=== PATIENT | male | born 1940 | race Caucasian/White ===

== ENCOUNTER 2016-04-05 15:08 | Inpatient (IN) | payer OTHER ==
--- NOTE | 2016-04-05 15:28 | CPEKG ---
Heart Rate: 86 RR Interval: 698 P-R Interval: 144 QRSD Interval: 150 QT Interval: 384 QTC Interval: 460 P [place]: 48 QRS [place]: -77 T Wave [place]: 33 EKG Severity - ABNORMAL ECG - EKG Impression: SINUS RHYTHM EKG Impression: RBBB AND LAFB Electronically Signed By: Emma Sanchez 05-Apr-2016 18:11:24
[2016-04-05] MEDS ORDERED: HYDROmorphONE/DILAUDID 1 MG/ML SYR IVP ONE ×2 (15:38→17:46)
--- NOTE | 2016-04-05 16:33 | EDPHY ---
H & P Stated Complaint: Rib pain Time Seen by Provider: 04/05/16 15:18 HPI/ROS: CHIEF COMPLAINT: Cough, rib pain HISTORY OF PRESENT ILLNESS: 75-year-old male presents emergency department reporting that he has had a cough for 2 weeks. Cough has been keeping him up at night. Over the last 3 days it has been productive of blood-tinged sputum. Patient also has had some nasal congestion. He saw his primary care physician yesterday without any significant diagnosis. Patient shoveled snow this morning and afterwards developed severe left chest discomfort. He indicates a well localized area of pain which is palpable and pleuritic. Denies any lightheadedness or dizziness. Denies any anterior chest pain. Denies nausea or vomiting or diarrhea. Denies any fever. REVIEW OF SYSTEMS: Aside from elements discussed in the HPI, a comprehensive 10-point review of systems was reviewed and is negative. PAST MEDICAL HISTORY: Coronary artery disease with 6 stents, pacemaker. SOCIAL HISTORY: Patient is . He has [employer]. VITAL SIGNS Reviewed by me. GENERAL: Elderly male, pleasant, reports significant pain when taking a deep breath. HEENT: Atraumatic. Eyes: No icterus, no injection. Mouth: moist mucous membranes. Posterior erythema, no tonsillar enlargement or exudates. Neck: supple with no adenopathy. LUNGS: Diminished breath sounds at the left base. Significant discomfort when taking a deep breath. CARDIAC: Regular rate and rhythm, no rubs, murmurs or gallops. ABDOMEN: Soft, nontender, nondistended, bowel sounds normal. BACK: No CVA tenderness. EXTREMITIES: No trauma. No edema. Range of motion is normal throughout. NEURO: Alert and oriented, grossly nonfocal. SKIN: Warm and dry, no rash. PSYCHIATRIC: Normal mentation, no agitation. - Personal History Current Tetanus/Diphtheria Vaccine: Yes Current Tetanus Diphtheria and Acellular Pertussis (TDAP): Yes Tetanus Vaccine Date: <10 YRS - Medical/Surgical History Hx Asthma: No Hx Chronic Respiratory Disease: No Hx Diabetes: No Hx Cardiac Disease: Yes Hx Renal Disease: No Hx Cirrhosis: No Hx Alcoholism: No Hx HIV/AIDS: No Hx Splenectomy or Spleen Trauma: No Other PMH: pacemaker, 6 stents - Social History Smoking Status: Never smoked Constitutional: Initial Vital Signs Temperature (C) 37.1 C 04/05/16 15:19 Heart Rate 90 04/05/16 15:19 Respiratory Rate 18 04/05/16 15:19 Blood Pressure 159/78 H 04/05/16 15:19 O2 Sat (%) 92 04/05/16 15:19 O2 Delivery Mode Room Air Allergies/Adverse Reactions: No Known Allergies Allergy (Verified 04/05/16 15:18) Home Medications: Medication Instructions Recorded Acetamn/Diphenhydramine 500/25 2 each PO HS 04/05/16 [Tylenol PM (*)] Aspirin [Aspirin 325 mg (*)] 325 mg PO DAILY 04/05/16 Clopidogrel Bisulfate [Plavix (*)] 75 mg PO DAILY 04/05/16 Lactulose 20 gm PO DAILY@18 04/05/16 Lisinopril [Zestril 5 mg (*)] 5 mg PO DAILY 04/05/16 [place]-3 Fatty Acids [Fish Oil 1000 1,000 mg PO DAILY 04/05/16 mg (*)] Omeprazole 20 mg PO DAILY 04/05/16 Polyethylene Glycol 3350 [Miralax 17 gm PO DAILY@18 04/05/16 17 gm (*)] Simvastatin 40 mg PO DAILY 04/05/16 oxyCODONE IR [Oxycodone Ir (*)] 5 mg PO TID PRN 04/05/16 Medical Decision Making - Diagnostics EKG Interpretation: 12-LEAD EKG: Please see the full report in [facility]. My interpretation: Sinus rhythm, right bundle branch block. Imaging: X-ray: Chest x-ray was obtained. I viewed the images myself on the PACS system. My interpretation of the images is: Left basilar consolidation, probable effusion, infiltrate. The radiologist interpretation is pending at this time. I discussed the x-ray findings with the patient. Results: CT scan of the chest was obtained. I viewed the images independently on the PACS system. I discussed the results of the study with the radiologist. Impression: No pulmonary emboli, left pleural effusion, left lower lobe infiltrate, posterior lingular infiltrate. Please see the full radiology report. ED Course/Re-evaluation: 75-year-old male presents to the emergency department with left-sided chest discomfort. Patient believes this is related to coughing. Does have a pleuritic component to his pain. He has been sick for the previous 2 weeks with sputum production and developed bloody sputum 3 days ago. Chest x-ray here demonstrates significant changes at the left base. Patient's D-dimer is elevated. Patient underwent a CT scan of his chest for PE. No pulmonary emboli. CT scan demonstrates pleural effusion with left lower lobe infiltrate and left posterior lingular infiltrate. Patient has not had a fever but has white count on 13,000. He does report he has had a cough productive of bloody sputum. Lactic acid is normal. No signs of severe sepsis. O2 sat on room air on arrival as documented at 92%. Patient's course was discussed with [facility]. Patient has [employer] Medicare and would prefer to be admitted to [facility]. [facility] is in agreement with the plan and admission to [facility]. Patient's course was discussed with Dr. Alvino Ibarra. He received a dose of Levaquin and was admitted to [facility]. Differential Diagnosis: After history and physical examination, the differential for chest pain was considered, including but not limited to, myocardial ischemia, acute coronary syndrome, pulmonary embolus, chest wall pain, pleural inflammation and pulmonary infectious causes. Consult/Admit Bed Type: Dr. Alvino Ibarra, [facility] surg - Data Points Laboratory Results: Laboratory Results 04/05/16 15:18 04/05/16 15:18 04/05/16 04/05/16 18:20 15:18 WBC 13.44 H 10^3/uL (3.80-9.50) RBC 5.14 10^6/uL (4.40-6.38) Hgb 15.8 g/dL (13.7-17.5) Hct 46.6 % (40.0-51.0) MCV 90.7 fL (81.5-99.8) MCH 30.7 pg (27.9-34.1) MCHC 33.9 g/dL (32.4-36.7) RDW 12.7 % (11.5-15.2) Plt Count 570 H 10^3/uL (150-400) MPV 8.6 L fL (8.7-11.7) Neut % (Auto) 78.3 H % (39.3-74.2) Lymph % (Auto) 13.8 L % (15.0-45.0) [place] % (Auto) 6.2 % (4.5-13.0) Eos % (Auto) 0.9 % (0.6-7.6) Baso % (Auto) 0.3 % (0.3-1.7) Nucleat RBC Rel Count 0.0 % (0.0-0.2) Absolute Neuts (auto) 10.52 H 10^3/uL (1.70-6.50) Absolute Lymphs (auto) 1.86 10^3/uL (1.00-3.00) Absolute Monos (auto) 0.83 H 10^3/uL (0.30-0.80) Absolute Eos (auto) 0.12 10^3/uL (0.03-0.40) Absolute Basos (auto) 0.04 10^3/uL (0.02-0.10) Absolute Nucleated RBC 0.00 10^3/uL (0-0.01) Immature Gran % 0.5 % (0.0-1.1) Immature Gran # 0.07 10^3/uL (0.00-0.10) PT 14.3 SEC (12.0-15.0) INR 1.12 (0.83-1.16) APTT 31.4 SEC (23.0-38.0) D-Dimer 1.60 H ug/mLFEU (0.00-0.50) VBG Lactic Acid 1.5 mmol/L (0.7-2.1) Sodium 143 mEq/L (134-144) Potassium 4.2 mEq/L (3.5-5.2) Chloride 102 mEq/L (97-110) Carbon Dioxide 25 mEq/l (22-31) Anion Gap 16 mEq/L (8-16) BUN 15 mg/dL (7-23) Creatinine 0.9 mg/dL (0.7-1.3) Estimated GFR > 60 Glucose 149 H mg/dL (70-100) Calcium 9.3 mg/dL (8.5-10.4) Total Bilirubin 0.7 mg/dL (0.1-1.4) Troponin I 0.013 ng/mL (0-0.034) Medications Given: Discontinued Medications Hydromorphone HCl (Dilaudid) 1 mg IVP EDNOW ONE Stop: 04/05/16 15:39 Last Admin: 04/05/16 15:52 Dose: 1 mg Hydromorphone HCl (Dilaudid) 1 mg IVP EDNOW ONE Stop: 04/05/16 17:47 Last Admin: 04/05/16 17:52 Dose: 1 mg Departure - Departure Disposition: [facility] Inpatient Acute Clinical Impression: Pleural effusion, Pleurodynia Pneumonia Qualifiers: Pneumonia type: due to unspecified organism Laterality: left Lung location: lower lobe of lung Qualifier Code: (J18.1) Lobar pneumonia, unspecified organism Condition: Fair
[2016-04-05 16:40] LABS: % IMMATURE GRANULYOCYTES 0.5 % (0.0-1.1); ABSOLUTE IMMATURE GRANULOCYTES 0.07 10^3/uL (0.00-0.10); ADD DIFF? NO; ADD MORPH? NO; ADD SCAN? NO; ATYPICAL LYMPHOCYTE FLAG 0 (0-99); FRAGMENT RBC FLAG 0 (0-99); HEMATOCRIT 46.6 % (40.0-51.0); HEMOGLOBIN 15.8 g/dL (13.7-17.5); LEFT SHIFT FLG 0 (0-99); LIPEMIA HEMOLYSIS FLAG 90 (0-99); MEAN CELL HEMOGLOBIN 30.7 pg (27.9-34.1); MEAN CELL HEMOGLOBIN CONCENTR. 33.9 g/dL (32.4-36.7); MEAN CELL VOLUME 90.7 fL (81.5-99.8); MEAN PLATELET VOLUME 8.6 fL (8.7-11.7); PLATELET CLUMPS FLAG 30 (0-99); PLATELET COUNT 570 10^3/uL (150-400); RED BLOOD CELL COUNT 5.14 10^6/uL (4.40-6.38); RED CELL DISTRIBUTION WIDTH 12.7 % (11.5-15.2)
[2016-04-05 16:45] LABS: ANION GAP 16 mEq/L (8-16); CALCIUM 9.3 mg/dL (8.5-10.4); CARBON DIOXIDE 25 mEq/l (22-31); CHLORIDE 102 mEq/L (97-110); CREATININE 0.9 mg/dL (0.7-1.3); GLOMERULAR FILTRATION RATE > 60; GLUCOSE 149 mg/dL (70-100); POTASSIUM 4.2 mEq/L (3.5-5.2); SODIUM 143 mEq/L (134-144)
--- NOTE | 2016-04-05 16:52 | DX ---
PA Upright and Lateral Views of the Chest April 05, 2016, at 3:34 p.m. Clinical History: 75-year-old male with lower lateral left-sided chest pain for three days which has been worsening. Comparison Study: Chest, dated July 09, 2006. Findings: Oxygen tubing and telemetry monitoring lead lines are present. There is a dual-lead left curran bclavian transvenous pacemaker with the proximal lead in the right atrium and the distal lead in the right ventricle. A left-sided coronary artery stent is present. There has been development of left ba silar pleuroparenchymal consolidation consistent with atelectasis, infiltrate and/or pleural effusion . There is an air-fluid in the stomach. There is pleural calcification seen over the lateral right mi d-chest. There is mural calcification of the aortic knob. The osseous structures are age appropriate. Impression: Left lower lobe pleuroparenchymal consolidation. Clinical correlation and follow up to as sure resolution are recommended.
[2016-04-05 16:57] LABS: TROPONIN I 0.013 ng/mL (0-0.034)
[2016-04-05] MEDS ORDERED: IOPAMIDOL (ISOVUE 370) 100 ML BTL IV ONE (17:18)
[2016-04-05 17:34] LABS: APTT 31.4 SEC (23.0-38.0); INR 1.12 (0.83-1.16); PROTIME(PATIENT) 14.3 SEC (12.0-15.0)
[2016-04-05 17:48] LABS: BILIRUBIN,TOTAL 0.7 mg/dL (0.1-1.4)
--- NOTE | 2016-04-05 18:47 | CT ---
Contrast-Enhanced CT Scan of the Chest (CT Pulmonary Artery Angiography) Clinical History: 75-year-old male with left lower lobe pleuroparenchymal consolidation and left-side d chest pain. Rule out PE. The patient has a mild leukocytosis. Technique: A timing bolus was used. The patient received 90 mL of IV Isovue-370, without complicati on, and a multidetector helical CT scan was obtained from the base of the neck inferiorly through the upper abdomen, with images reformatted at 1.50 and 4/3 mm increments, and reviewed at a variety of w indow and level settings. Multiplanar reconstructions are reviewed on the workstation. The DFOV is 33.1 cm. A dose reduction protocol was used. Comparison Study: Chest radiography from earlier this afternoon. Findings: CT Angiography: The main pulmonary artery, the main right and the main left pulmonary arteries, and the 1st and 2nd pulmonary artery segments are contrast-opacified, with no filling defect to suggest a cute or chronic thromboemboli. There is some breathing artifact and limitation in evaluation of the more peripheral subsegmental branches. At the level of the left lower lobe pleuroparenchymal consoli dation, the pulmonary arteries are contrast-opacified. There is borderline-aneurysmal dilatation of the ascending thoracic aorta, measuring 3.9 x 4.1 cm at the crossing right pulmonary artery. The vineet cending thoracic aorta at this same level measures 2.5 x 2.4 cm. Coronary artery atherosclerotic jemma cifications are observed, and there is an LAD coronary artery stent present. The great vessels off t he aortic arch are notable for anatomic variation in that the left vertebral artery arises directly f rom the aortic arch before the left innominate ostium. There is no evidence of thoracic or upper abd ominal aortic dissection. Atherosclerotic calcifications are observed. The heart size is normal. T here is no pericardial effusion. There is a dual-lead left subclavian transvenous pacemaker, with th e proximal lead in the right atrium and the distal lead in the anterior right ventricle. Contrast-Enhanced CT Scan of the Chest: There is beam-hardening artifact over the upper left anterio r chest wall secondary to the pacemaker battery pack. The thyroid gland is normal. There is no axil hilda adenopathy. There is a 1.7 x 1.4 cm subcarinal lymph node and a 1.5 x 1.5 cm left hilar lymph n ode. These may be reactive, however, follow up is suggested. There is a left pleural effusion of mi af-ym-[id number] degree, with some compressive atelectasis and/or infiltrate. These findings are most pronounced in the left lower lobe, although there is some involvement of the inferolateral lingula. There is also some minimal atelectasis at the posterior right lung base, with no significant pleural fluid on the right side. Calcified pleural plaques are consistent with prior asbestos-related pleura l disease. There are degenerative features of the thoracic spine, with no compression deformity. Th e visualized portions of the upper abdomen are unremarkable. Impression: 1. There is no CT evidence of pulmonary artery thromboemboli. 2. Qofjc-wb-vnpqkotk left pleural effusion, with left basilar atelectasis and/or infiltrate. 3. Sequela of prior asbestos-related pleural disease, with some calcified pleural plaquing. 4. LAD coronary artery stenting, with atherosclerotic features. 5. Borderline-aneurysmal dilatation of the ascending thoracic aorta, with no evidence of dissection. I discussed the above findings with Dr. Emma Sanchez at 6:25 p.m. on April 05, 2016. E:moose
[2016-04-05] MEDS ORDERED: ZOLPIDEM TARTRATE 5 MG TAB PO PRN (20:29)
[2016-04-05] MEDS ORDERED: ONDANSETRON 4 MG/2 ML VIAL IVP PRN (20:29)
[2016-04-05] MEDS ORDERED: PROMETHAZINE HCL 25 MG/ML VIAL IVP PRN (20:29)
--- NOTE | 2016-04-05 20:37 | PDGENHP ---
History and Physical History and Physical: HISTORY AND PHYSICAL ADMISSION NOTE CC: Pleuritic chest pain and fevers HISTORY: This patient has had a cough for about 3 weeks. Over the last few days he has developed steadily worsening pleuritic chest pain along with some hemoptysis. He is not really short of breath per se. There is no angina-like symptoms, no pain or swelling in the legs. He has no cold or flu type upper respiratory symptoms. He has never had an illness like this before. He says he has been waking recently at night with his not close completely soaked with sweat. He has not had rigors. He denies nausea vomiting headache myalgias or arthralgias. He was seen at an outside hospital yesterday where he had chest x- ray done. He was not started apparently on any new therapy. He comes in today for further evaluation here. ROS: Chronic arthritic pains otherwise 10 system comprehensive review unrevealing PAST MEDICAL HISTORY: Hypertension Coronary artery disease status post stents Pacemaker Osteoarthritis FAMILY MEDICAL HISTORY: Reviewed by me, no concerning or relevant significant medical history SOCIAL HISTORY: , lives with his at home No tobacco or street drugs or alcohol Dr. Burr is his primary physician at [place] MEDICATIONS: His medication list has been reconciled by the clinical pharmacist and entered in the chart. I reviewed the list of medicines and ordered appropriate medications. PHYSICAL EXAMINATION: Vital Signs: Stable without fever here so far Child Care Assistant: Sinus rhythm Examination: General: alert, oriented, good mentation, relaxed Skin: warm, dry, good color, no rash HEENT: normal Neck: no mass or jvd Resps: His Respiratory depth is significantly limited by sharp pleuritic pain Lungs: Auscultation is limited by his shallow respirations, no definite abnormalities her Heart: regular, no murmur Abdomen: soft, nondistended, nontender, +BS, no mass Upper Extremities: normal Lower Extremities: no edema, warm No Bleeding or bruising Neurologic: normal speech/language, normal learning disabilities specialist, no focal weakness IV site: looks normal LABORATORY DATA: Elevated white blood cell count, elevated D-dimer, elevated platelets EKG: my personal interpretation of the tracing, sinus rhythm with right bundle branch block left anterior fascicular block, nothing that appears ischemic RADIOLOGY STUDIES: CT scan and chest x-ray both done in the ER, I reviewed all the images personally, my interpretation: There is elevation of the left hemidiaphragm, moderate left pleural effusion, atelectasis and possible left lower lobe infiltrate. I do not see a mass. The radiologist comments on some pleural plaques suggestive of probable asbestosis ASSESSMENT: DIAGNOSES: # SUSPECT COMMUNITY-ACQUIRED PNEUMONIA THE UNDERLYING CAUSE OF THIS ACUTE ILLNESS HOWEVER OTHER CAUSES ARE POSSIBLE, PULMONARY EMBOLISM IS RULED OUT # LEFT-SIDED PLEURAL EFFUSION, SUSPECT PARAPNEUMONIC, HOWEVER EMPYEMA OR HEMORRHAGE ARE POSSIBLE # HEMOPTYSIS, MOST LIKELY RELATED TO PNEUMONIA, HOWEVER WITH DIFFERENTIAL DIAGNOSIS USUAL. NO MASS SEEN ON CT SCAN. # HISTORY OF CORONARY DISEASE AND STENTS, CLINICALLY STABLE NOW PLANS: -he is started on empiric antibiotics in the ER after cultures were obtained and I will continue this with Levaquin -Plan on thoracentesis in the morning; orders for routine labs for empyema, cultures, cytology -DVT prophylaxis will start after the thoracentesis -Continue anti-platelet therapy for now I have reviewed the patient's case in detail with Dr. Sanchez
[2016-04-05] MEDS: BENZONATATE 100 MG CAP PO PRN (21:24)
[2016-04-05] MEDS: ACETAMN/DIPHENHYDRAMINE 500/25MG TAB PO SCH (21:24)
[2016-04-05 23:53] LABS: LACTATE DEHYDROGENASE 699 IU/L (313-618)
[2016-04-06] MEDS: BENZONATATE 100 MG CAP PO PRN ×3 (02:31→20:16)
[2016-04-06 02:51] LABS: COLOR YELLOW; LEUKOCYTE ESTERASE,URINE NEGATIVE (NEGATIVE); NITRITE,URINE NEGATIVE (NEGATIVE)
[2016-04-06 03:00] LABS: MUCUS 1+ /lpf (NONE-1+)
[2016-04-06 06:03] LABS: % IMMATURE GRANULYOCYTES 0.5 % (0.0-1.1); ABSOLUTE IMMATURE GRANULOCYTES 0.08 10^3/uL (0.00-0.10); ADD DIFF? NO; ADD MORPH? NO; ADD SCAN? NO; ATYPICAL LYMPHOCYTE FLAG 0 (0-99); FRAGMENT RBC FLAG 0 (0-99); HEMATOCRIT 40.3 % (40.0-51.0); HEMOGLOBIN 13.6 g/dL (13.7-17.5); LEFT SHIFT FLG 10 (0-99); LIPEMIA HEMOLYSIS FLAG 80 (0-99); MEAN CELL HEMOGLOBIN 30.8 pg (27.9-34.1); MEAN CELL HEMOGLOBIN CONCENTR. 33.7 g/dL (32.4-36.7); MEAN CELL VOLUME 91.2 fL (81.5-99.8); MEAN PLATELET VOLUME 8.6 fL (8.7-11.7); PLATELET CLUMPS FLAG 0 (0-99); PLATELET COUNT 429 10^3/uL (150-400); RED BLOOD CELL COUNT 4.42 10^6/uL (4.40-6.38); RED CELL DISTRIBUTION WIDTH 12.6 % (11.5-15.2)
[2016-04-06 06:12] LABS: INR 1.26 (0.83-1.16); PROTIME(PATIENT) 15.8 SEC (12.0-15.0)
[2016-04-06 06:13] LABS: APTT 35.9 SEC (23.0-38.0)
[2016-04-06 06:22] LABS: ANION GAP 11 mEq/L (8-16); CALCIUM 8.2 mg/dL (8.5-10.4); CARBON DIOXIDE 25 mEq/l (22-31); CHLORIDE 101 mEq/L (97-110); CREATININE 0.9 mg/dL (0.7-1.3); GLOMERULAR FILTRATION RATE > 60; GLUCOSE 107 mg/dL (70-100); POTASSIUM 4.8 mEq/L (3.5-5.2); SODIUM 137 mEq/L (134-144)
[2016-04-06] MEDS ORDERED: CLOPIDOGREL BISULFATE 75 MG TAB PO SCH (09:00)
--- NOTE | 2016-04-06 11:46 | HOSPPROG ---
Hospitalist Progress Note Assessment/Plan: Acute hypoxemic respiratory failure 2/2 CAP / LLL PNA with suspect parapneumonic effusion. WBC's up today, will change from Levaquin to Ceftriaxone / Azithromycin. BCx's pending. Thoracentesis initially deferred by IR due to Plavix use. He has been off Plavix for 2 days and has become tachycardic this afternoon. -proceed with thoracentesis and fluid analysis to r/o empyema -ID and surgical consult if pleural fluid c/w empyema -check urine pneumococcal and legionella ag -add sputum culture CAD with stents - pt states last stent was 10 yrs ago. He doesn't think he takes Plavix, but notes he takes clopidogrel for his stomach. No CP. -as above, hold plavix, can probably stop this altogether -cont asa, statin Hypertension - fair control, cont current regimen GERD - cont PPI Full code DVT PPLX - hold lovenox today as still considering thoracentesis Dispo - cont inpt Subjective: PT feels okay. No fevers/chills. Pain in right chest with coughing , deep wet cough. No SOB. Objective: Vital Signs Temp Pulse Resp BP Pulse Ox 36.9 C 94 18 133/76 H 93 04/06/16 11:41 04/06/16 11:41 04/06/16 11:41 04/06/16 11:41 04/06/16 11:41 Laboratory Results 04/06/16 04:55 04/06/16 04:55 PT 15.8 SEC (12.0-15.0) H 04/06/16 04:55 INR 1.26 (0.83-1.16) H 04/06/16 04:55 - Physical Exam Constitutional: no apparent distress Eyes: PERRL Ears, Nose, Mouth, Throat: moist mucous membranes Cardiovascular: regular rate and rhythym Respiratory: no respiratory distress, inspiratory crackles Gastrointestinal: normoactive bowel sounds, soft, non-tender abdomen Skin: warm Neurologic: AAOx3 Psychiatric: interacting appropriately ICD10 Worksheet Patient Problems: Problems Problem Status Diagnosed Pleural effusion Acute Pleuritic chest pain Acute Pneumonia Acute
[2016-04-06] MEDS: OMEGA-3 FATTY ACIDS 1,000 MG CAP PO SCH (12:19)
[2016-04-06] MEDS: ASPIRIN 325 MG TAB PO SCH (12:19)
[2016-04-06] MEDS: LISINOPRIL 5 MG TAB PO SCH (12:20)
[2016-04-06] MEDS: ATORVASTATIN CALCIUM 20 MG TAB PO SCH (12:20)
[2016-04-06] MEDS: PANTOPRAZOLE SODIUM 40 MG TAB PO SCH (12:20)
[2016-04-06] MEDS: AZITHROMYCIN IV 500 MG in D5W 250 ML IV SCH (12:24)
[2016-04-06] MEDS: ENOXAPARIN 40 MG/0.4 ML SYR SC SCH (12:26)
[2016-04-06] MEDS ORDERED: NA BICARBONATE 50 MEQ/50 ML VIAL ONE (16:59)
[2016-04-06 17:26] LABS: TOTAL PROTEIN 5.6 g/dL (6.3-8.2)
--- NOTE | 2016-04-06 18:22 | DX ---
Portable AP chest. April 06, 2016 at 17:57 History: Left thoracentesis. Comparison Study: April 05, 2016 Findings: Increasing left pleural effusion from prior study, currently moderate in size, and somewhat loculated. No pneumothorax after small volume left thoracentesis. Right lung is clear. Heart size is normal. Pacemaker is unchanged. Impression: 1. No left pneumothorax after small volume thoracentesis. 2. Increasing left pleural effusion. Results communicated to Dr. Mckeon.
[2016-04-06] MEDS: LACTULOSE 20 GM/30 ML UDCUP PO SCH (18:23)
[2016-04-06] MEDS: POLYETHYLENE GLYCOL 3350 17 GM PKT PO SCH (18:23)
--- NOTE | 2016-04-06 18:50 | US ---
Ultrasound-Guided Left Thoracentesis April 06, 2016 History: Concern for possible left empyema. Patient has withheld Plavix for two days. After consultat ion with Dr. Mckeon, it was decided to perform low-volume diagnostic thoracentesis. Technique: Informed consent was obtained, after explaining risks of the procedure including risk of b leeding and infection. A pocket of loculated pleural fluid was identified in the posterolateral left chest inferiorly. A timeout was performed. Using standard sterile technique and lidocaine local anesthetic, a 21-gauge needle was advanced into the left pleural space from a posterior approach. Approximately 2 mL of slightly bloody fluid were re moved for diagnostic evaluation. The needle was removed. A postthoracentesis chest x-ray is negative for pneumothorax. Impression: Small volume left thoracentesis for diagnostic evaluation of left pleural fluid. 2 mL o f slightly bloody fluid were sent to the laboratory.
[2016-04-06 19:10] LABS: LD, PLEURAL FLUID 1462 IU/L
[2016-04-06] MEDS: ACETAMN/DIPHENHYDRAMINE 500/25MG TAB PO SCH (20:16)
[2016-04-07] MEDS: oxyCODONE IR 5 MG TAB PO PRN ×4 (04:19→21:39)
[2016-04-07] MEDS: BENZONATATE 100 MG CAP PO PRN ×2 (04:19→09:09)
[2016-04-07 05:19] LABS: % IMMATURE GRANULYOCYTES 0.5 % (0.0-1.1); ABSOLUTE IMMATURE GRANULOCYTES 0.07 10^3/uL (0.00-0.10); ADD DIFF? NO; ADD MORPH? NO; ADD SCAN? NO; ATYPICAL LYMPHOCYTE FLAG 0 (0-99); FRAGMENT RBC FLAG 0 (0-99); HEMATOCRIT 42.2 % (40.0-51.0); HEMOGLOBIN 14.3 g/dL (13.7-17.5); LEFT SHIFT FLG 0 (0-99); LIPEMIA HEMOLYSIS FLAG 90 (0-99); MEAN CELL HEMOGLOBIN 30.8 pg (27.9-34.1); MEAN CELL HEMOGLOBIN CONCENTR. 33.9 g/dL (32.4-36.7); MEAN CELL VOLUME 90.8 fL (81.5-99.8); MEAN PLATELET VOLUME 8.6 fL (8.7-11.7); PLATELET CLUMPS FLAG 10 (0-99); PLATELET COUNT 486 10^3/uL (150-400); RED BLOOD CELL COUNT 4.65 10^6/uL (4.40-6.38); RED CELL DISTRIBUTION WIDTH 12.8 % (11.5-15.2)
[2016-04-07] MEDS: LISINOPRIL 5 MG TAB PO SCH (09:03)
[2016-04-07] MEDS: PANTOPRAZOLE SODIUM 40 MG TAB PO SCH (09:03)
[2016-04-07] MEDS: ASPIRIN 325 MG TAB PO SCH (09:03)
[2016-04-07] MEDS: ATORVASTATIN CALCIUM 20 MG TAB PO SCH (09:03)
[2016-04-07] MEDS: OMEGA-3 FATTY ACIDS 1,000 MG CAP PO SCH (09:03)
--- NOTE | 2016-04-07 09:44 | HOSPPROG ---
Hospitalist Progress Note Assessment/Plan: Acute hypoxemic respiratory failure 2/2 CAP / LLL PNA and associated effusion. S/P thoracentesis, fluid is exudative by LDH ratio, likely has empyema. WBC's trending down, afebrile. BCx's pending. Sputum Cx and pleural fluid cultures pending. No orgs on gram stain. -may need decortication, but will start with chest tube, surgery to place -urine pneumococcal and legionella ag pending -cont ceftriaxone/azithromycin CAD with stents - pt states last stent was 10 yrs ago. Off Plavix x3 days. No CP. -as above, hold plavix, can probably stop this altogether -cont asa, statin Hypertension - fair control, cont current regimen GERD - cont PPI Full code DVT PPLX - hold lovenox today for chest tube placement Dispo - cont inpt Subjective: Pt had a rough night, sounds like a paradoxical reaction to ambien ( received 10 mg). Still has deep painful cough, no fevers. Some CP associated with cough and SOB. Appetite good. He remains in good spirits. Objective: Vital Signs Temp Pulse Resp BP Pulse Ox 38.0 C 81 16 130/74 H 93 04/07/16 08:00 04/07/16 08:00 04/07/16 08:00 04/07/16 08:00 04/07/16 08:00 Microbiology 04/06/16 16:47 Gram Stain - Final Thoracic Fluid - Aspirate Laboratory Results 04/07/16 04:35 04/06/16 04:55 PT 15.8 SEC (12.0-15.0) H 04/06/16 04:55 INR 1.26 (0.83-1.16) H 04/06/16 04:55 - Physical Exam Constitutional: no apparent distress Eyes: PERRL Ears, Nose, Mouth, Throat: moist mucous membranes Cardiovascular: regular rate and rhythym Respiratory: no respiratory distress, other (diminished breath sounds LLL with faint crackles) Gastrointestinal: normoactive bowel sounds, soft, non-tender abdomen Skin: warm Neurologic: AAOx3 Psychiatric: interacting appropriately ICD10 Worksheet Patient Problems: Problems Problem Status Diagnosed Pleural effusion Acute Pleuritic chest pain Acute Pneumonia Acute
[2016-04-07] MEDS ORDERED: fentaNYL 100 MCG/2 ML INJ IVP ONE (10:08)
[2016-04-07] MEDS: AZITHROMYCIN IV 500 MG in D5W 250 ML IV SCH (10:13)
[2016-04-07] MEDS ORDERED: BUPIVACAINE 0.25% 30 ML SDV ONE (12:57)
[2016-04-07] MEDS ORDERED: LIDO/EPI 1% **Not for Epidural 20 ML MDV ONE (12:57)
--- NOTE | 2016-04-07 14:33 | GCON ---
[f rep st] CONSULTATION INFECTIOUS DISEASE CONSULTATION DATE OF CONSULTATION: 04/07/2016 REFERRING PHYSICIAN: Angelica Mckeon MD REASON FOR CONSULTATION: Fevers, night sweats, and lower lobe pneumonia with pleural effusion. HISTORY OF PRESENT ILLNESS: The patient is a 75-year-old male who lives up in [place] who has had a cough and developing fevers and chills steadily since . These symptoms have worsened a nd he has developed left-sided pleuritic chest pain, along with hemoptysis prior to presentation. He denied any shortness of breath on presentation. He believes that he caught a cold from his great gr andchildren which were visiting him often recently. He states also that his has a cough as well . The patient was begun on ceftriaxone and azithromycin. The patient has a sample of pleural fluid taken yesterday afternoon which showed a small amount of red cloudy fluid. The fluid had 100,000 red blood cells and 46 white blood cells. The differential on the white blood cells was 100% lymphocyte s. The total protein on this sample was less than 2 and the LDH was 1462. The patient denies any ex posure to anyone who has had known tuberculosis. The patient was incarcerated many years ago. He briones s not had a TB skin test to his knowledge ever. PAST MEDICAL HISTORY: 1. Hypertension. 2. Coronary artery disease. 3. Osteoarthritis. PAST SURGICAL HISTORY: 1. Status post pacemaker placement. 2. Status post appendectomy. MEDICATIONS: Antibiotics: 1. Ceftriaxone. 2. Zithromax. ALLERGIES: Patient has no known drug allergies. SOCIAL HISTORY: Patient is . Lives with his at home. Has supportive family. Lives up in [place]. He has no history of tobacco, alcohol, or drug use. FAMILY HISTORY: Reviewed but noncontributory. REVIEW OF SYSTEMS: Other than that detailed above in History of Present Illness, a comprehensive 10- system review is negative. PHYSICAL EXAMINATION: VITAL SIGNS: Temperature maximum is 38.0, temperature current is 37.1, heart rate is 81, respiratory rate is 18, blood pressure is 109/64. GENERAL: The patient is a well-formed , well-nourished, older male in no acute distress. He is not toxic in appearance. He is alert orien tena x3. He is in a pleasant demeanor. HEENT: Normocephalic for age. Atraumatic. No scleral icter us. No oral lesion or drainage from the nares. Eyes: Lids and conjunctivae within normal limits. Pupils equal, round bilaterally. NECK: Supple without meningismus. LUNGS: Clear to auscultation o n the right side. Patient has decreased breath sounds on the left side in the lower lobe. He is juan antonio ar in the midline and upper field. HEART: Regular rate and rhythm. No murmur, rub, or gallop noted . No significant peripheral edema. ABDOMEN: Soft, nontender. No masses. SKIN: Warm, dry to the touch. No rash or lesion seen. MUSCULOSKELETAL: No muscle belly tenderness is noted. No joint nusrat e effusion or arthritis is seen. NEURO: Cranial nerves 2-12 seem to be intact. Peripheral sensatio n seems intact in all extremities. LABORATORY DATA: 1. The patient has a CBC dated 04/07/2016 which shows a white blood cell count of 14.5, hemoglobin 1 4.3, hematocrit of 42.2, platelet count 486, differential is left-shifted with 85% segmented neutroph ils. 2. Serum chemistries on 04/06/2016 are all within normal limits. Creatinine 0.9. 3. Urinalysis on 04/06/2016 is all within normal limits. 4. Pleural fluid from 04/06/2016 shows 100,000 red blood cells and 46 white blood cells, 100% of the white blood cells are lymphocytes. 5. Urine Legionella antigen and urine Strep pneumo antigen are pending. 6. Microbiologic data: Blood cultures dated 04/05/2016 are no growth to date. Thoracic fluid aspir ate dated 04/06/2016: Gram stain is negative for polymorphonuclear white cells and organisms. The c ulture is pending. Sputum culture from 04/06/2016 is pending. AFB smear and culture is added on to this. ASSESSMENT: Left lower lobe infiltrate with pleural effusion. Status post chest tube placement this morning. Th e patient is doing fairly well clinically. Will continue to treat with ceftriaxone and azithromycin, but the cell count qualities as well as the lymphocytic predominance of the fluid that was aspirated yesterday, concerns me for tuberculosis. Will send an adenosine deaminase level on pleural fluid I will submit from the chest tube. Will also put patient in isolation and do a daily AFB smear and cul ture for 3 days. No empiric treatment at this point. PLAN: 1. Rule out for tuberculosis. 2. Continue community-acquired pneumonia treatment with ceftriaxone and azithromycin. 3. Followup lab testing and patient's clinical trending. /[id number]/MODL
--- NOTE | 2016-04-07 14:54 | DX ---
Portable Chest April 07, 2016 at 1436 hours History: Left chest tube placement. Left pleural effusion. Comparison: April 06, 2016. Findings: Complex left basilar moderate pleural effusion again noted, with a chest tube in the left lung base. No pneumothorax. Left chest wall bipolar pacemaker. Linear scarring in the right lung. Impressions 1. Chest tube in the left lung base, without pneumothorax. 2. Pleuroparenchymal opacity in the left lower lobe consistent with complex pleural effusion.
[2016-04-07] MEDS: POLYETHYLENE GLYCOL 3350 17 GM PKT PO SCH (18:01)
[2016-04-07] MEDS: LACTULOSE 20 GM/30 ML UDCUP PO SCH (18:01)
--- NOTE | 2016-04-07 18:13 | GCON ---
[f rep st] CONSULTATION DATE OF CONSULTATION: 04/07/2016 CHIEF COMPLAINT: Pleuritic chest pain with productive cough. HISTORY OF PRESENT ILLNESS: This is a 75-year-old male admitted 2 days ago to the internal medicine service, with a productive cough for about the past 3 weeks. The patient stated that prior to his pr esentation, the preceding few days before, he developed a steadily worsening pleuritic chest pain, le ft greater than right with occasional hemoptysis, with some shortness of breath. He stated that this was the 1st illness he had ever had like this. In addition to the above symptoms, he said that he h ad night sweats as well. He denies having any other symptoms, including nausea, vomiting, or any oth er complaints. However, he did present to an outside hospital the day prior to his admission, where a chest x-ray was performed; however, no treatment and/or admission was sought. PAST MEDICAL HISTORY: 1. Hypertension. 2. Coronary artery disease, status post stents. Currently on Plavix. 3. Pacemaker. 4. Osteoarthritis. PAST SURGICAL HISTORY: None. REVIEW OF SYSTEMS: A full 10-point review of systems was performed, and unless explicitly stated abo ve, is otherwise negative. SOCIAL HISTORY: , lives with . Denies tobacco or street drugs. Denies being around any sick contacts. CURRENT MEDICATIONS: Include full-dose aspirin, Plavix, lactulose, lisinopril, omega-3 fatty acids, omeprazole, MiraLAX, simvastatin, and oxycodone. The patient has been holding his Plavix for the t 3 days. PHYSICAL EXAM: VITAL SIGNS: Temperature 37.1, heart rate 81, blood pressure 109/64, and he is 91% o n 2 L nasal cannula. GENERAL: He is alert, oriented, in no acute distress. CV: He has a regular r ate and rhythm without any murmurs appreciated. LUNGS: He does have some rales, left greater than r ight with diminished lung sounds on the left side. ABDOMEN: His abdomen is soft, nondistended, nont belem to palpation. EXTREMITIES: His extremities are warm and well perfused. IMAGING: Included a CT scan performed on the , which is negative for pulmonary embolus; however, does note a [id number]-[id number] left-sided pleural effusion with left basilar atelectasis. He had a p brian film corroborating the same. LABS: Significant for a leukocytosis to 14,000, the remainder of which are unremarkable. ASSESSMENT AND PLAN: A 75-year-old male with left-sided pleural effusion, likely secondary to underl bridget pneumonia, suggestive of parapneumonic effusion/empyema. I reviewed the patient's imaging today , and I feel that the fluid collection is somewhat small. He did undergo a thoracentesis yesterday a nd they were able to obtain some blood-tinged fluid for which cultures are pending. I told the patie nt that this fluid likely did represent a parapneumonic effusion and would benefit from drainage if h e continues to have a productive cough and the significant imaging findings. After discussing the ri sks, benefits, and alternatives, he elected to proceed with left chest thoracostomy tube placement. Will continue to follow should the patient require any more invasive procedures such as a VATS, decor tication, and washout. But, anticipate that with the minimal amount of fluid within his chest cavity , he will respond to thoracostomy drainage. /[id number]/MODL
--- NOTE | 2016-04-07 18:33 | GOP ---
[f rep st] OPERATIVE REPORT DATE OF OPERATION: 04/07/2016 SURGEON: John Jung MD ANESTHESIA: Local consisting of 1% lidocaine and 0.25% Marcaine with epinephrine. PREOPERATIVE DIAGNOSIS: Left parapneumonic effusion. POSTOPERATIVE DIAGNOSIS: Left parapneumonic effusion. PROCEDURE PERFORMED: Left chest tube thoracostomy placement. FINDINGS: A 28-Australian straight chest tube directed inferoposteriorly into appropriate fluid collecti on, attached to suction without complication. SPECIMENS: None. ESTIMATED BLOOD LOSS: 5 cc. DESCRIPTION OF PROCEDURE: Prior to proceeding, a [employer] time-out was performed. After this, the patient's left chest was then prepped and draped in typical sterile fashion. I provi ded pain control using IV fentanyl and a field block consisting of 1% lidocaine and 0.25% Marcaine wi th epinephrine throughout the procedure. In the approximate 5th intercostal space, in the mid axilla ry line, I made a 3 cm incision. I carried this down through the subcutaneous tissue where the infer ior rib was identified. Just superior to this, I dissected the intercostal muscles and entered the p atient's chest cavity. Just deep to this, I identified the patient's diaphragm. I directed the 28-Fr ench chest tube inferoapically along the diaphragm, into the posterior sulcus of the patient's chest cavity, towards the offending fluid collection. Once successfully placed, I attached the chest tube to the patient's skin using an 0 silk suture and then attached the chest tube to Pleur-evac suction a t 20 mmHg and had good tidaling and good output. The patient tolerated the procedure well, without a ny intraoperative complications. DRAINS: A 28-Australian straight chest tube. /[id number]/MODL
[2016-04-07] MEDS: traZODone 50 MG TAB PO SCH (21:39)
[2016-04-07] MEDS: ACETAMN/DIPHENHYDRAMINE 500/25MG TAB PO SCH (21:39)
[2016-04-08] MEDS ORDERED: traZODone 50 MG TAB PO ONE (02:00)
[2016-04-08 05:02] LABS: % IMMATURE GRANULYOCYTES 0.7 % (0.0-1.1); ABSOLUTE IMMATURE GRANULOCYTES 0.08 10^3/uL (0.00-0.10); ADD DIFF? NO; ADD MORPH? NO; ADD SCAN? NO; ATYPICAL LYMPHOCYTE FLAG 0 (0-99); FRAGMENT RBC FLAG 0 (0-99); HEMATOCRIT 36.2 % (40.0-51.0); HEMOGLOBIN 12.4 g/dL (13.7-17.5); LEFT SHIFT FLG 0 (0-99); LIPEMIA HEMOLYSIS FLAG 90 (0-99); MEAN CELL HEMOGLOBIN 31.1 pg (27.9-34.1); MEAN CELL HEMOGLOBIN CONCENTR. 34.3 g/dL (32.4-36.7); MEAN CELL VOLUME 90.7 fL (81.5-99.8); MEAN PLATELET VOLUME 8.5 fL (8.7-11.7); PLATELET CLUMPS FLAG 10 (0-99); PLATELET COUNT 412 10^3/uL (150-400); RED BLOOD CELL COUNT 3.99 10^6/uL (4.40-6.38); RED CELL DISTRIBUTION WIDTH 12.9 % (11.5-15.2)
[2016-04-08] MEDS: AZITHROMYCIN IV 500 MG in D5W 250 ML IV SCH (08:50)
[2016-04-08] MEDS: OMEGA-3 FATTY ACIDS 1,000 MG CAP PO SCH (08:51)
[2016-04-08] MEDS: PANTOPRAZOLE SODIUM 40 MG TAB PO SCH (08:51)
[2016-04-08] MEDS: LISINOPRIL 5 MG TAB PO SCH (08:51)
[2016-04-08] MEDS: ATORVASTATIN CALCIUM 20 MG TAB PO SCH (08:51)
[2016-04-08] MEDS: ASPIRIN 325 MG TAB PO SCH (08:51)
--- NOTE | 2016-04-08 09:45 | DX ---
Portable AP Upright Chest - April 08, 2016, at 8:16 a.m. Clinical History: 75-year-old male inpatient status post left-sided chest tube placement. Evaluate fo r residual fluid. Comparison Study: Chest, dated April 07, 2016, at 2:36 p.m. Findings: There is stable positioning of the left-sided chest tube. There is persistent left pleurop arenchymal consolidation involving the left mid-lower lung zones, although there has been slightly mo re aeration and partial improvement. The cardiac and mediastinal silhouette is stable. There is some right basilar subsegmental atelectasis. A bipolar left subclavian transvenous pacemaker is stable in position. Impression: Hypoventilatory features with persistent, though perhaps marginally improved, left basil ar pleuroparenchymal consolidation, compared to April 07, 2016.
--- NOTE | 2016-04-08 10:13 | SOAPPROG ---
SOAP Progress Note Assessment/Plan: Assessment/Plan POD#1 s/p L chest tube for parapneumonic effusion - CXR today shows some improvement in L chest. CT tidaling well with 200cc in canister without air leak, would cont to waterseal. WBC down to 10, still with productive cough. CXR looks to show more parynchemal disease than residual fluid but would want to re-evaluate early this week with repeat CT if concerned. Making progress. 04/08/16 10:11 Subjective: Grumpy. Still coughing but pain does appear controlled Objective: Vital Signs Temp Pulse Resp BP Pulse Ox 36.8 C 80 16 136/71 H 94 04/08/16 08:00 04/08/16 08:00 04/08/16 08:00 04/08/16 08:51 04/08/16 08:00 Microbiology 04/06/16 22:30 - Final Sputum, Expectorated 04/06/16 09:46 Mycobacterial Smear (MAX) - Final Sputum, Expectorated 04/06/16 16:47 Gram Stain - Final Thoracic Fluid - Aspirate Laboratory Results 04/08/16 04:21 04/06/16 04:55 04/07/16 04/08/16 04/09/16 05:59 05:59 05:59 Output Total 200 Balance -200 PT 15.8 SEC (12.0-15.0) H 04/06/16 04:55 INR 1.26 (0.83-1.16) H 04/06/16 04:55 Physical Exam - Physical Exam General Appearance: WD/WN, alert, no apparent distress Respiratory: other (L chest tube in place. No air leak, tidaling. output serosang ) ICD10 Worksheet Patient Problems: Problems Problem Status Diagnosed Pleural effusion Acute Pleuritic chest pain Acute Pneumonia Acute
[2016-04-08] MEDS: oxyCODONE IR 5 MG TAB PO PRN ×2 (10:56→21:46)
--- NOTE | 2016-04-08 12:40 | PCMIDPN ---
Assessment/Plan: Assessment: Chronic left lower lobe pneumonia with parapneumonic effusion. Chest tube in place. Concern for TB given lymphocytic predominant pleural effusion with significant blood. He has no clear epidemiologic exposure for TB. Although he has no prior test for latent TB either. Will continue with ceftriaxone and azithromycin. WBCs continue to trend downward. Patient appears nontoxic at present. Chest tube in place. 1st AFB smear is negative. Plan: 1. Complete 3 AFB smears prior to termination of respiratory isolation. 2. Continue ceftriaxone and azithromycin empiric therapy for community-acquired pneumonia. 3. Follow up on urine strep pneumo antigen. 4. Plan on sending a T spot interferon gamma release assay on Saturday or Saturday once the [facility] labs reopened for specimen. 04/08/16 15:42 Subjective: Patient is sitting up in bed in his hospital room. He notes some continued cough although he feels fairly well. Denies significant fevers or chills. Occasionally productive sputum. Objective: Ceftriaxone #2 Azithromycin #2 Vital Signs Temp Pulse Resp BP Pulse Ox 36.7 C 76 16 136/65 H 92 04/08/16 11:34 04/08/16 11:34 04/08/16 11:34 04/08/16 11:34 04/08/16 11:34 Microbiology 04/06/16 16:47 Gram Stain - Final Thoracic Fluid - Aspirate 04/06/16 22:30 - Final Sputum, Expectorated 04/06/16 09:46 Mycobacterial Smear (MAX) - Final Sputum, Expectorated Laboratory Results 04/08/16 04:21 04/06/16 04:55 04/07/16 04/08/16 04/09/16 05:59 05:59 05:59 Output Total 200 Balance -200 - Physical Exam General Appearance: WD/WN, alert, no apparent distress, non-toxic Respiratory: crackles (Left midlung), other (Chest tube left-sided place.), No lungs clear (Absent breath sounds left lower lobe), No respiratory distress Cardiac/Chest: regular rate, rhythm, No tachycardia Extremities: non-tender, normal inspection Skin: normal color, warm/dry, No rash Neuro/Psych: alert, normal mood/affect, oriented x 3 ICD10 Worksheet Patient Problems: Problems Problem Status Diagnosed Pleural effusion Acute Pleuritic chest pain Acute Pneumonia Acute
--- NOTE | 2016-04-08 13:44 | HOSPPROG ---
Hospitalist Progress Note Assessment/Plan: * Left pleural effusion - suspect parapneumonic -bloody fluid and asbestos pleural disease - ? malignancy - check cytology -pulmonary consulted - d/w Dr. Lacy -s/p chest tube - may need VATS * Pneumonia -ceftriaxone, azithro -ruling out TB - AFB negative x 1 * CAD/stent -holding plavix * PCM Subjective: Still with severe pleuritic chest pain, no improvement. Minimal change in pain level with chest tube placement Objective: Vital Signs Temp Pulse Resp BP Pulse Ox 36.7 C 76 16 136/65 H 92 04/08/16 11:34 04/08/16 11:34 04/08/16 11:34 04/08/16 11:34 04/08/16 11:34 Microbiology 04/06/16 16:47 Gram Stain - Final Thoracic Fluid - Aspirate 04/06/16 22:30 - Final Sputum, Expectorated 04/06/16 09:46 Mycobacterial Smear (MAX) - Final Sputum, Expectorated Laboratory Results 04/08/16 04:21 04/06/16 04:55 04/07/16 04/08/16 04/09/16 05:59 05:59 05:59 Output Total 200 Balance -200 PT 15.8 SEC (12.0-15.0) H 04/06/16 04:55 INR 1.26 (0.83-1.16) H 04/06/16 04:55 CXR reviewed, my personal interpretation is - moderate left pleural effusion CT chest - minimal infiltrate, + asbestos pleural disease - Physical Exam Constitutional: no apparent distress, appears nourished, not in pain Cardiovascular: regular rate and rhythym, no murmur, rub, or gallop Respiratory: no respiratory distress, no rales or rhonchi, clear to auscultation Gastrointestinal: normoactive bowel sounds, soft, non-tender abdomen, no palpable masses Skin: no rashes or abrasions, no fluctuance, no induration Neurologic: AAOx3, sensation intact bilaterally Psychiatric: interacting appropriately, not anxious, not encephalopathic, thought process linear ICD10 Worksheet Patient Problems: Problems Problem Status Diagnosed Pleural effusion Acute Pleuritic chest pain Acute Pneumonia Acute
--- NOTE | 2016-04-08 16:56 | GCON ---
[f rep st] CONSULTATION PULMONARY CONSULTATION DATE OF CONSULTATION: 04/08/2016 REFERRING PHYSICIAN: Angelica Mckeon MD CHIEF COMPLAINT: Pleuritic chest pain. HISTORY OF PRESENT ILLNESS: This 75-year-old male developed an upper respiratory infection that is c onfined to his head and then developed a cough over the past 3 weeks. There was a small amount of bl ood streaking in his sputum, but the sputum was generally clear. He had some low-grade fevers and di d have some night sweats during this time soaking his pajamas. There were no chills. He denies vomi ting or clinical aspiration. He also developed some pleuritic chest pain. There is no leg swelling or leg trauma. He was seen in the hospital and had a CT of his chest that did not show pulmonary emb elena, but did show an effusion on the left. A chest tube was placed by Dr. Jung and some bloody fluid was obtained. He is not having much pain at this point and actually feels quite a bit better. He has not had any fevers while he has been in the hospital, and his night sweats are gone. Chest CT did show some linear calcifications suggestive of asbestosis. PAST MEDICAL HISTORY: 1. Coronary artery disease, post stents. 2. Pacemaker. 3. Osteoarthritis. 4. Hypertension. SOCIAL HISTORY: He lives in [place] with his . He is very active. Over the past couple of ye ars, he has had some slight increase in shortness of breath when he has been chopping wood up at 9000 feet or shoveling snow at 9000 feet. He has never smoked tobacco, used any illicit drugs, and rarel y uses alcohol. He spent 3 years in the [employer]. 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 He is certain that there was no asbestos insulation on pipes, but he does gregory nasir that the gaskets had asbestos. However, he states he did very little actual work and believes hi s exposure if any to asbestos was minimal. FAMILY HISTORY: Without diabetes mellitus or early arteriosclerotic vascular disease. REVIEW OF SYSTEMS: Otherwise noncontributory x10 points, except as included above. PHYSICAL EXAMINATION: VITAL SIGNS: Blood pressure is 135/69 with a pulse of 86, respiratory rate of 16, oxygen saturation of 94% on 2.5 L, and he has been afebrile. SKIN: Normal. HEAD: Without ext ernal evidence of trauma. EYES: Fundi not visualized ears canals clear. NOSE: Without septal meg ation or polyps. MOUTH AND PHARYNX: Clear without lesions. NECK: Supple without adenopathy. CHES T: There are decreased breath sounds on the left. HEART: PMI 5th intercostal space, midclavicular line. S1 and S2 are normal. There is no S3, S4, or murmur. ABDOMEN: Soft without organomegaly or masses. No bruits are heard. EXTREMITIES: Full range of motion without clubbing, cyanosis, or laura pheral edema. DATA REVIEWED: Chest CT scan showed a left pleural effusion with linear calcifications suggestive of asbestosis. The original white blood count was 13,000, increased to 16,000, is now 10,000. INR is 1.2. Chemistry panel is normal. Pleural fluid chemistries show white blood count of only 46 with an elevated red blood count, high protein of less than 2, and LDH of 1400. IMPRESSION: Left pleural effusion with computerized tomography evidence suggesting asbestosis. This has been thought to be a parapneumonic effusion and with his leukocytosis, fever, and night sweats, I think that is likely the case. However, the original CT scan did not show a distinct pulmonary inf iltrate. He is clinically improved. PLAN: I spent some time explaining to the patient that this may be pleural fluid that was due to a p neumonia, but could also be due to a mesothelioma related to his asbestosis. I have told him mesothe lioma is certainly a bad tumor. The way to try and diagnose that would be with a surgical biopsy, pr obably with a VATS procedure. The patient is very adamant at this point that he does not want that. As he said, he is 75 years old and has lived a good life, and does not want to pursue the diagnosis of mesothelioma. I think that is actually reasonable at this time. We could finish the course of tr eatment with antibiotics and the chest tube drainage. His left chest should be followed up in the fu ture with CT scans to make sure that he is not developing increased pleural disease suggestive of mes othelioma. At that point, I am not sure if he would agree to biopsies and surgery, but that could be left further down the line. /[id number]/MODL
[2016-04-08] MEDS: LACTULOSE 20 GM/30 ML UDCUP PO SCH (17:30)
[2016-04-08] MEDS: POLYETHYLENE GLYCOL 3350 17 GM PKT PO SCH (17:30)
[2016-04-08] MEDS: BENZONATATE 100 MG CAP PO PRN (21:46)
[2016-04-08] MEDS: ACETAMN/DIPHENHYDRAMINE 500/25MG TAB PO SCH (21:47)
[2016-04-08] MEDS: traZODone 50 MG TAB PO SCH (21:47)
[2016-04-09] MEDS: oxyCODONE IR 5 MG TAB PO PRN ×4 (03:31→20:43)
[2016-04-09] MEDS: BENZONATATE 100 MG CAP PO PRN ×2 (03:32→20:42)
[2016-04-09] MEDS: ASPIRIN 325 MG TAB PO SCH (08:11)
[2016-04-09] MEDS: PANTOPRAZOLE SODIUM 40 MG TAB PO SCH (08:11)
[2016-04-09] MEDS: ATORVASTATIN CALCIUM 20 MG TAB PO SCH (08:11)
[2016-04-09] MEDS: OMEGA-3 FATTY ACIDS 1,000 MG CAP PO SCH (08:11)
[2016-04-09] MEDS: LISINOPRIL 5 MG TAB PO SCH (08:11)
[2016-04-09] MEDS: ENOXAPARIN 40 MG/0.4 ML SYR SC SCH (08:12)
[2016-04-09] MEDS: AZITHROMYCIN IV 500 MG in D5W 250 ML IV SCH (09:04)
--- NOTE | 2016-04-09 11:00 | SOAPPROG ---
SOAP Progress Note Assessment/Plan: Assessment/Plan POD#2 s/p L chest tube for parapneumonic effusion - Unclear output in pleurvac as has been knocked over a few times, remains on waterseal and tidaling well. Did discuss VATs today for diagnostic purposes and patient was against this as he would not want chemotherapy if the diagnosis was indeed mesothelioma. Would keep CT at least one more day with good charted output before removal but does appear to be improving. 04/08/16 10:11 04/09/16 10:58 Subjective: In ok spirits today, pain improved. Objective: Vital Signs Temp Pulse Resp BP Pulse Ox 36.7 C 80 20 140/73 H 93 04/09/16 07:53 04/09/16 07:53 04/09/16 07:53 04/09/16 08:11 04/09/16 07:53 Microbiology 04/06/16 22:30 - Final Sputum, Expectorated Sputum Culture - Final 04/07/16 15:01 Mycobacterial Smear (MAX) - Final Lung - Lung 04/06/16 16:47 Gram Stain - Final Thoracic Fluid - Aspirate Laboratory Results 04/08/16 04:21 04/06/16 04:55 04/08/16 04/09/16 04/10/16 05:59 05:59 05:59 Output Total 200 14 Balance -200 -14 PT 15.8 SEC (12.0-15.0) H 04/06/16 04:55 INR 1.26 (0.83-1.16) H 04/06/16 04:55 ICD10 Worksheet Patient Problems: Problems Problem Status Diagnosed Pleural effusion Acute Pleuritic chest pain Acute Pneumonia Acute
--- NOTE | 2016-04-09 12:15 | PCMIDPN ---
Assessment/Plan: Assessment/Plan: 1. LLL pneumonia with lymphocytic parapneumonic effusion: - s/p chest tube. -cytology pending. Malignancy, TB in differential. -Pleural cx with no org, no growth on cultures thus far. -Called lab, no pleural fluid left to add on studies. Only 2ml sent to lab on diagnostic thoracentesis. -sputum for AFB negative x 2. Continue with airborne precautions for now until 3 AFB sputums are negative. No known TB contacts, no recent international. -Currently on empiric ceftriaxone and azithro for CAP. -will order t-spot. Meds ceftraixone 1g qd- 04/06 azithro 500mg daily -04/06 Subjective: Afebrile. Feels better today with respect to pleurtic cp, breathing etc. CHest tube in place. c/o mostly bloody nasal drainage. Denies abd pain or diarrhea. Objective: Vital Signs Temp Pulse Resp BP Pulse Ox 36.7 C 80 20 140/73 H 93 04/09/16 07:53 04/09/16 07:53 04/09/16 07:53 04/09/16 08:11 04/09/16 07:53 Microbiology 04/06/16 22:30 - Final Sputum, Expectorated Sputum Culture - Final 04/07/16 15:01 Mycobacterial Smear (MAX) - Final Lung - Lung 04/06/16 16:47 Gram Stain - Final Thoracic Fluid - Aspirate Laboratory Results 04/08/16 04:21 04/06/16 04:55 04/08/16 04/09/16 04/10/16 05:59 05:59 05:59 Output Total 200 14 Balance -200 -14 - Physical Exam General Appearance: alert, no apparent distress Respiratory: coarse breath sounds Cardiac/Chest: regular rate, rhythm Extremities: No swelling Abdomen: normal bowel sounds, non-tender, soft, No distended Skin: No erythema ICD10 Worksheet Patient Problems: Problems Problem Status Diagnosed Pleural effusion Acute Pleuritic chest pain Acute Pneumonia Acute
[2016-04-09] MEDS: POLYETHYLENE GLYCOL 3350 17 GM PKT PO SCH (16:42)
[2016-04-09] MEDS: LACTULOSE 20 GM/30 ML UDCUP PO SCH (16:42)
[2016-04-09] MEDS ORDERED: KETOROLAC 30 MG/1 ML SDV IVP PRN (16:48)
--- NOTE | 2016-04-09 16:50 | HOSPPROG ---
Hospitalist Progress Note Assessment/Plan: * Left pleural effusion - parapneumonic vs. 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 -patient declines further eval including VATS * Pneumonia -ceftriaxone, azithro -ruling out TB - AFB negative x 2 * CAD/stent -holding plavix * PCM Subjective: Feeling much better today Objective: Vital Signs Temp Pulse Resp BP Pulse Ox 36.8 C 82 18 138/68 H 94 04/09/16 16:00 04/09/16 16:00 04/09/16 16:00 04/09/16 16:00 04/09/16 16:00 Microbiology 04/06/16 16:47 Gram Stain - Final Thoracic Fluid - Aspirate 04/06/16 22:30 - Final Sputum, Expectorated Sputum Culture - Final 04/07/16 15:01 Mycobacterial Smear (MAX) - Final Lung - Lung Laboratory Results 04/08/16 04:21 04/06/16 04:55 04/08/16 04/09/16 04/10/16 05:59 05:59 05:59 Output Total 200 14 Balance -200 -14 PT 15.8 SEC (12.0-15.0) H 04/06/16 04:55 INR 1.26 (0.83-1.16) H 04/06/16 04:55 - Physical Exam Constitutional: no apparent distress, appears nourished, not in pain Cardiovascular: regular rate and rhythym, no murmur, rub, or gallop Respiratory: no respiratory distress, no rales or rhonchi, clear to auscultation Gastrointestinal: normoactive bowel sounds, soft, non-tender abdomen, no palpable masses Skin: no rashes or abrasions, no fluctuance, no induration Neurologic: AAOx3, sensation intact bilaterally Psychiatric: interacting appropriately, not anxious, not encephalopathic, thought process linear ICD10 Worksheet Patient Problems: Problems Problem Status Diagnosed Pleural effusion Acute Pleuritic chest pain Acute Pneumonia Acute
[2016-04-09] MEDS: ACETAMN/DIPHENHYDRAMINE 500/25MG TAB PO SCH (20:42)
[2016-04-09] MEDS: traZODone 50 MG TAB PO SCH (20:43)
[2016-04-10 05:30] LABS: % IMMATURE GRANULYOCYTES 1.1 % (0.0-1.1); ADD DIFF? NO; ADD MORPH? NO; ADD SCAN? NO; ATYPICAL LYMPHOCYTE FLAG 20 (0-99); FRAGMENT RBC FLAG 0 (0-99); HEMATOCRIT 38.5 % (40.0-51.0); LEFT SHIFT FLG 10 (0-99); LIPEMIA HEMOLYSIS FLAG 90 (0-99); MEAN CELL HEMOGLOBIN 30.6 pg (27.9-34.1); MEAN CELL HEMOGLOBIN CONCENTR. 33.8 g/dL (32.4-36.7); MEAN CELL VOLUME 90.6 fL (81.5-99.8); MEAN PLATELET VOLUME 8.5 fL (8.7-11.7); PLATELET CLUMPS FLAG 0 (0-99); PLATELET COUNT 490 10^3/uL (150-400); RED BLOOD CELL COUNT 4.25 10^6/uL (4.40-6.38); RED CELL DISTRIBUTION WIDTH 13.2 % (11.5-15.2)
[2016-04-10] MEDS: ACETAMINOPHEN 325 MG TAB PO PRN (05:42)
[2016-04-10 05:51] LABS: ALANINE AMINOTRANSFERASE 62 IU/L (21-72); ALBUMIN 2.5 g/dL (3.5-5.0); ALKALINE PHOSPHATASE 73 IU/L (38-126); ANION GAP 10 mEq/L (8-16); ASPARTATE AMINOTRANSFERASE 52 IU/L (17-59); BILIRUBIN,TOTAL 0.5 mg/dL (0.1-1.4); CALCIUM 8.3 mg/dL (8.5-10.4); CARBON DIOXIDE 30 mEq/l (22-31); CHLORIDE 100 mEq/L (97-110); CREATININE 0.9 mg/dL (0.7-1.3); GLOMERULAR FILTRATION RATE > 60; GLUCOSE 110 mg/dL (70-100); POTASSIUM 4.9 mEq/L (3.5-5.2); SODIUM 140 mEq/L (134-144); TOTAL PROTEIN 5.4 g/dL (6.3-8.2)
--- NOTE | 2016-04-10 07:46 | PCMIDPN ---
Assessment/Plan: Assessment/Plan: 1. LLL pneumonia with lymphocytic parapneumonic effusion: - s/p chest tube. -cytology pending. Malignancy, TB in differential. -Pleural cx with no org, no growth on cultures thus far. -Called lab, no pleural fluid left to add on studies. Only 2ml sent to lab on diagnostic thoracentesis. -sputum for AFB negative x 2. Continue with airborne precautions for now until 3 AFB sputums are negative. No known TB contacts, no recent international. -Currently on empiric ceftriaxone and azithro for CAP. - t-spot ordered. - awaiting third sputum. - U. legionella, u. strep, t- spot pending Meds ceftraixone 1g qd- 04/06 azithro 500mg daily -04/06 Subjective: Afebrile. Feels better today but had drenching sweats last night. Chest tube present. occ pleuritic pain. Denies diarrhea. productive cough Objective: Vital Signs Temp Pulse Resp BP Pulse Ox 37.1 C 71 12 147/72 H 93 04/10/16 04:00 04/10/16 04:00 04/10/16 04:00 04/10/16 04:00 04/10/16 04:00 Microbiology 04/06/16 16:47 Gram Stain - Final Thoracic Fluid - Aspirate 04/06/16 22:30 - Final Sputum, Expectorated Sputum Culture - Final Laboratory Results 04/10/16 04:18 04/10/16 05:15 04/09/16 04/10/16 04/11/16 05:59 05:59 05:59 Intake Total 920 Output Total 14 20 Balance -14 900 - Physical Exam General Appearance: alert, no apparent distress Respiratory: coarse breath sounds Cardiac/Chest: regular rate, rhythm Extremities: No swelling Abdomen: normal bowel sounds, non-tender, soft, No distended Skin: No erythema ICD10 Worksheet Patient Problems: Problems Problem Status Diagnosed Pleural effusion Acute Pleuritic chest pain Acute Pneumonia Acute
[2016-04-10] MEDS: ASPIRIN 325 MG TAB PO SCH (08:24)
[2016-04-10] MEDS: PANTOPRAZOLE SODIUM 40 MG TAB PO SCH (08:25)
[2016-04-10] MEDS: OMEGA-3 FATTY ACIDS 1,000 MG CAP PO SCH (08:25)
[2016-04-10] MEDS: LISINOPRIL 5 MG TAB PO SCH (08:25)
[2016-04-10] MEDS: ATORVASTATIN CALCIUM 20 MG TAB PO SCH (08:26)
[2016-04-10] MEDS: ENOXAPARIN 40 MG/0.4 ML SYR SC SCH (08:26)
[2016-04-10] MEDS: AZITHROMYCIN IV 500 MG in D5W 250 ML IV SCH (09:36)
--- NOTE | 2016-04-10 12:28 | HOSPPROG ---
Hospitalist Progress Note Assessment/Plan: * Left pleural effusion - parapneumonic vs. 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 -patient declines further eval including VATS * Pneumonia -ceftriaxone, azithro -ruling out TB - AFB negative x 2 * CAD/stent -holding plavix * PCM Subjective: Feeling much better Objective: Vital Signs Temp Pulse Resp BP Pulse Ox 37.0 C 78 18 126/66 H 94 04/10/16 11:29 04/10/16 11:29 04/10/16 11:29 04/10/16 11:29 04/10/16 11:29 Microbiology 04/07/16 15:01 Mycobacterial Smear (MAX) - Final Lung - Lung 04/06/16 09:46 Mycobacterial Smear (MAX) - Final Sputum, Expectorated 04/06/16 16:47 Gram Stain - Final Thoracic Fluid - Aspirate 04/06/16 22:30 - Final Sputum, Expectorated Sputum Culture - Final Laboratory Results 04/10/16 04:18 04/10/16 05:15 04/09/16 04/10/16 04/11/16 05:59 05:59 05:59 Intake Total 920 Output Total 14 20 Balance -14 900 PT 15.8 SEC (12.0-15.0) H 04/06/16 04:55 INR 1.26 (0.83-1.16) H 04/06/16 04:55 - Physical Exam Constitutional: no apparent distress, appears nourished, not in pain Cardiovascular: regular rate and rhythym, no murmur, rub, or gallop Respiratory: no respiratory distress, no rales or rhonchi, clear to auscultation Gastrointestinal: normoactive bowel sounds, soft, non-tender abdomen, no palpable masses Skin: no rashes or abrasions, no fluctuance, no induration Neurologic: AAOx3, sensation intact bilaterally Psychiatric: interacting appropriately, not anxious, not encephalopathic, thought process linear ICD10 Worksheet Patient Problems: Problems Problem Status Diagnosed Pleural effusion Acute Pleuritic chest pain Acute Pneumonia Acute
--- NOTE | 2016-04-10 15:22 | DX ---
Portable chest - April 10, 2016, at 1509 hours History: Left empyema with chest tube. Comparison: April 08, 2016. Findings: Chest tube in the left lung base with associated inferolateral left lower lobe complex flu id collection, similar to the previous study. Right lung is clear. Elevated left hemidiaphragm. Ather osclerotic aorta. Pacemaker without pneumothorax. Impression: 1. Left lung base chest tube with associated complex pleuroparenchymal effusion/empyema without signi ficant change. 2. No pneumothorax.
--- NOTE | 2016-04-10 16:38 | SOAPPROG ---
SOAP Progress Note Assessment/Plan: Assessment/Plan POD#3 s/p L chest tube for parapneumonic effusion - CXR today shows unchanges likely pleural thickening, poss fluid. CT with minimal output over last 24hrs. Will plan for d/c today. Discussed again VATs with the patient for decort and diagnostic purposes and he once again declined any desire for further procedures. Will be available should he change his mind. 04/08/16 10:11 04/09/16 10:58 04/10/16 16:36 Subjective: In good spirits today, cough improving. Pain controlled. Objective: Vital Signs Temp Pulse Resp BP Pulse Ox 37 C 78 18 139/65 H 94 04/10/16 15:41 04/10/16 15:41 04/10/16 15:41 04/10/16 15:41 04/10/16 15:41 Microbiology 04/08/16 07:10 Mycobacterial Smear (MAX) - Final Unspecified 04/06/16 16:47 Gram Stain - Final Thoracic Fluid - Aspirate Body Fluid Culture - Final 04/07/16 15:01 Mycobacterial Smear (MAX) - Final Lung - Lung 04/06/16 09:46 Mycobacterial Smear (MAX) - Final Sputum, Expectorated 04/06/16 22:30 - Final Sputum, Expectorated Sputum Culture - Final Laboratory Results 04/10/16 04:18 04/10/16 05:15 04/09/16 04/10/16 04/11/16 05:59 05:59 05:59 Intake Total 920 500 Output Total 14 20 Balance -14 900 500 PT 15.8 SEC (12.0-15.0) H 04/06/16 04:55 INR 1.26 (0.83-1.16) H 04/06/16 04:55 ICD10 Worksheet Patient Problems: Problems Problem Status Diagnosed Pleural effusion Acute Pleuritic chest pain Acute Pneumonia Acute
[2016-04-10] MEDS: LACTULOSE 20 GM/30 ML UDCUP PO SCH (18:00)
[2016-04-10] MEDS: POLYETHYLENE GLYCOL 3350 17 GM PKT PO SCH (18:00)
[2016-04-10] MEDS: traZODone 50 MG TAB PO SCH (19:33)
[2016-04-10] MEDS: ACETAMN/DIPHENHYDRAMINE 500/25MG TAB PO SCH (19:33)
[2016-04-10] MEDS: CALCIUM CARBONATE 500 MG CHEWABLE TAB PO PRN ×2 (21:49→22:27)
[2016-04-10] MEDS: oxyCODONE IR 5 MG TAB PO PRN (22:27)
[2016-04-10] MEDS: BENZONATATE 100 MG CAP PO PRN (22:27)
[2016-04-11] MEDS: ACETAMINOPHEN 325 MG TAB PO PRN (05:13)
[2016-04-11 08:13] VITALS: BP 134/74; PULSE 70; RESP 18; TEMP 97.7; O2SAT 93
[2016-04-11] MEDS: ASPIRIN 325 MG TAB PO SCH (09:10)
[2016-04-11] MEDS: OMEGA-3 FATTY ACIDS 1,000 MG CAP PO SCH (09:10)
[2016-04-11] MEDS: LISINOPRIL 5 MG TAB PO SCH (09:11)
[2016-04-11] MEDS: PANTOPRAZOLE SODIUM 40 MG TAB PO SCH (09:11)
[2016-04-11] MEDS: ENOXAPARIN 40 MG/0.4 ML SYR SC SCH (09:12)
[2016-04-11] MEDS: ATORVASTATIN CALCIUM 20 MG TAB PO SCH (09:12)
[2016-04-11] MEDS: AZITHROMYCIN IV 500 MG in D5W 250 ML IV SCH (09:59)
--- NOTE | 2016-04-11 14:14 | DX ---
Portable chest x-ray 1309 hours. History: Followup chest tube removal. Findings: Comparison to April 10, 2016. The left-sided chest tube has been removed. There is persistent loculated effusion left mid to lower lung laterally. There is also suspicion of effusion tracking within the major fissure on the left. Pa tchy consolidation remains at the left base. The right lung remains clear. Pleural calcified plaque i s suspected right midlung laterally. Pacemaker unit remains in place. Heart size is upper limits of n ormal. Pulmonary vasculature is not engorged. Osseous structures are unchanged. Impression: 1. Loculated effusion suspected in left lung base laterally and extending into the major fissure on t he left. 2. Moderate patchy consolidation/pneumonia suspected left lower lobe. 3. Interval left-sided chest tube removal.
--- NOTE | 2016-04-11 14:35 | SOAPPROG ---
SOAP Progress Note Assessment/Plan: Assessment: SP LEFT CHEST TUBE BS EQUAL/ CXR PLEURAL BASED MASS ? MESOTHELIOMA Plan: TO [facility] FOR FU 04/11/16 14:33 Objective: Vital Signs Temp Pulse Resp BP Pulse Ox 36.5 C 70 18 134/74 H 93 04/11/16 08:00 04/11/16 08:00 04/11/16 08:00 04/11/16 08:00 04/11/16 08:00 Microbiology 04/08/16 07:10 Mycobacterial Smear (MAX) - Final Unspecified 04/06/16 16:47 Gram Stain - Final Thoracic Fluid - Aspirate Body Fluid Culture - Final 04/07/16 15:01 Mycobacterial Smear (MAX) - Final Lung - Lung 04/06/16 09:46 Mycobacterial Smear (MAX) - Final Sputum, Expectorated Laboratory Results 04/10/16 04:18 04/10/16 05:15 04/10/16 04/11/16 04/12/16 05:59 05:59 05:59 Intake Total 920 500 Output Total 20 Balance 900 500 PT 15.8 SEC (12.0-15.0) H 04/06/16 04:55 INR 1.26 (0.83-1.16) H 04/06/16 04:55 ICD10 Worksheet Patient Problems: Problems Problem Status Diagnosed Pleural effusion Acute Pleuritic chest pain Acute Pneumonia Acute
--- NOTE | 2016-04-11 14:49 | GDS ---
[f rep st] DISCHARGE SUMMARY DISCHARGE DIAGNOSES: 1. Complicated left pleural effusion with trapped lung, VATS (video assisted thoracoscopic surgery) declined. 2. 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 3. Pneumonia with suspected parapneumonic effusion. 4. Coronary artery disease, status post previous stent. 5. Pacemaker. HISTORY: Titi Reyna is a 75-year-old male who presents with hemoptysis and pleuritic chest pain. In the emergency room he got a CT angiogram of the chest , which was negative for pulmonary embolus. It showed a moderate left-sided pleural effusion and sequela of prior asbestos-related pleural disease with some calcified pleural plaquing. There was some associated infiltrate. He was admitted to the hospital and seen in consultation with General Surgery, Pulmonary, and Infectious Disease. Initial working diagnosis was pneumonia with a parapneumonic effusion. Infectious Disease had some concerns for tuberculosis, and he was isolated until AFB was negative x3. Surgery placed a chest tube. His lung did not re-expand, and it was clear a VATS procedure is indicated. Given his evidence of asbestos pleural disease, there is also concern for possible malignant mesothelioma. Cytology on the pleural fluid is pending. All cultures are negative, including blood cultures, sputum culture, and pleural fluid culture. He was treated empirically for community-acquired pneumonia with ceftriaxone and azithromycin. He did have some improvement in his symptoms. Given his chest tube drainage reduced significantly, his chest tube was discontinued. He was counseled at length regarding the fact that this pleural effusion has been suboptimally treated and VATS is still recommended. He chooses to return to his usual physicians at [facility] for a second opinion. Infectious Disease recommends Levaquin 750 mg p.o. daily for 1 month in an attempt to sterilize the pleural space, which is suboptimally treated. Even with his antibiotic therapy, there is a high risk for failure without VATS decortication. Patient was counseled regarding this at length. DISCHARGE MEDICATIONS: Please see computer record for full detailed list. New medications: Levaquin 750 mg p.o. daily for 1 month. ADDITIONAL DISCHARGE INSTRUCTIONS: 1. Cytology of pleural fluid pending at discharge, please follow up with primary care. 2. VATS decortication still recommended and can be performed at [facility] if the patient changes his mind. Greater than 30 minutes' time was spent arranging discharge. Patient was seen examined by me on the day of discharge. /[id number]/MODL MTDD
== END 2016-04-11 14:53 | disposition home or self-care (01) | DRG 194 ==
LOC: EDUNIT# → OBSVTOIN 20:32 → F3E 20:54
PROVIDERS: ADMIT Internal Medicine; ATTEND Internal Medicine
PROC: 0W9B3ZX Drainage of Left Pleural Cavity, Percutaneous Approach, Diagnostic (ICD-10-PCS; principal; 2016-04-06)
PROC: 0W9B30Z Drainage of Left Pleural Cavity with Drainage Device, Percutaneous Approach (ICD-10-PCS; 2016-04-07)
DX: J18.9 Pneumonia, unspecified organism (principal); J90 Pleural effusion, not elsewhere classified; J61 Pneumoconiosis due to asbestos and other mineral fibers; I25.10 Atherosclerotic heart disease of native coronary artery without angina pectoris; I10 Essential (primary) hypertension; Z95.0 Presence of cardiac pacemaker; Z95.5 Presence of coronary angioplasty implant and graft; K21.9 Gastro-esophageal reflux disease without esophagitis
CPT/HCPCS: 87449-90; 96365; J0456; J0696; J1170; J1650; J1956; J3010; Q9967

== ENCOUNTER 2016-08-08 12:31 | Emergency (ER) | payer OTHER ==
[2016-08-08] MEDS ORDERED: ONDANSETRON 4 MG/2 ML VIAL IVP ONE (12:46)
--- NOTE | 2016-08-08 12:53 | EDPHY ---
HPI/HX/ROS/PE/MDM ED Course: Patient was sent here by PCP with bradycardia, hypoxia, and abnormal EKG . EKG was ordered and interpreted by myself. Please see [employer] system for official reading: Second degree heart block, 2:1 conduction, LBBB. - Data Points Medications Given: Discontinued Medications Ondansetron HCl (Zofran) 4 mg IVP EDNOW ONE Stop: 08/08/16 12:47 Last Admin: 08/08/16 12:54 Dose: 4 mg General Time Seen by Provider: 08/08/16 12:44 Initial Vital Signs: Initial Vital Signs Temperature (C) 36.3 C 08/08/16 12:37 Heart Rate 61 08/08/16 12:37 Respiratory Rate 18 08/08/16 12:37 Blood Pressure 176/78 H 08/08/16 12:37 O2 Sat (%) 96 08/08/16 12:37 Allergies/Adverse Reactions: No Known Allergies Allergy (Verified 08/08/16 12:35) Home Medications: Medication Instructions Recorded Dicyclomine 08/08/16 Omeprazole 08/08/16 Oxycodone HCl 08/08/16 Departure - Departure Disposition: [facility] Inpatient Acute Clinical Impression: Second degree heart block Condition: Serious Referrals: HEIDI BLANCO [Primary Care Provider] - As per Instructions Report Scribed for: Veto Woods Report Scribed by: Baylee Connors Date of Report: 08/08/16 Time of Report: 12:55 Physician Review and Approval Statement: Portions of this note were transcribed by a medical assistant dermatology. I personally performed the history, physical exam, and medical decision-making; and confirmed the accuracy of the information in the transcribed note.
--- NOTE | 2016-08-08 12:56 | CPEKG ---
Heart Rate: 60 RR Interval: 1000 P-R Interval: 138 QRSD Interval: 154 QT Interval: 508 QTC Interval: 508 P [place]: 55 QRS [place]: -77 T Wave [place]: -25 EKG Severity - ABNORMAL ECG - EKG Impression: ATRIAL-PACED COMPLEXES EKG Impression: RBBB AND LAFB Electronically Signed By: Thang Turner 08-Aug-2016 13:40:46
--- NOTE | 2016-08-08 13:03 | EDPHY ---
H & P Stated Complaint: EPIGASTRIC PAIN/SOB/N/V Time Seen by Provider: 08/08/16 12:44 HPI/ROS: CHIEF COMPLAINT: Acute exacerbation of chronic intermittent abdominal pain HISTORY OF PRESENT ILLNESS: The patient presents to the ED with an acute exacerbation of chronic intermittent abdominal pain. The patient reportedly has been diagnosed with acid reflux by his primary care provider. He has been dealing with this problem for a "long time." The patient states this particular episode of acute pain began at 3 or 4 this morning. He reports associated nausea. He denies vomiting or diarrhea. The patient states his pain is worsened with palpation as well as inspiration. The patient does have a history of a pacemaker secondary to syncope. The patient denies any anticoagulant use. The patient states his symptoms are moderate in nature. REVIEW OF SYSTEMS: A comprehensive 10 point review of systems is otherwise negative aside from elements mentioned in the history of present illness Source: Patient Exam Limitations: No limitations - Personal History Current Tetanus/Diphtheria Vaccine: Yes Tetanus Vaccine Date: <10 YRS - Medical/Surgical History Hx Asthma: No Hx Chronic Respiratory Disease: No Hx Diabetes: No Hx Cardiac Disease: Yes Hx Renal Disease: No Hx Cirrhosis: No Hx Alcoholism: No Hx HIV/AIDS: No Hx Splenectomy or Spleen Trauma: No Other PMH: pacemaker, 6 stents - Social History Smoking Status: Never smoked - Physical Exam Exam: General Appearance: Alert, no distress Eyes: Pupils equal and round no pallor or injection ENT, Mouth: Mucous membranes moist Respiratory: There are no retractions, lungs are clear to auscultation Cardiovascular: Regular rate and rhythm Gastrointestinal: Abdomen is soft and nontender, no masses, bowel sounds normal Neurological: A&O, normal motor function, normal sensory exam, normal cranial nerves Skin: Warm and dry, no rashes Musculoskeletal: Neck is supple nontender Extremities: symmetrical, full range of motion Constitutional: Initial Vital Signs Temperature (C) 36.3 C 08/08/16 12:37 Heart Rate 61 08/08/16 12:37 Respiratory Rate 18 08/08/16 12:37 Blood Pressure 176/78 H 08/08/16 12:37 O2 Sat (%) 96 08/08/16 12:37 O2 Delivery Mode Room Air Allergies/Adverse Reactions: No Known Allergies Allergy (Verified 08/08/16 12:35) Home Medications: Medication Instructions Recorded Dicyclomine 08/08/16 Omeprazole 08/08/16 Oxycodone HCl 08/08/16 Medical Decision Making - Diagnostics EKG Interpretation: EKG: Complete interpretation has been separately recorded in the [employer] archive. Summary impression: Paced rhythm, rate 60 Imaging Results: Imaging Impressions Chest X-Ray 08/08/16 13:13 Impression: 1. Improvement in pleural-parenchymal features associated with the left hemithorax compared to 04/11/2016, as above-detailed. 2. COPD and calcified pleural plaques. CT abdomen pelvis with IV contrast: No evidence of abdominal aortic aneurysm, single gallstone noted in neck of gallbladder, no pericholecystic fluid. Images reviewed by myself and discussed with radiologist Dr. Armstrong. ED Course/Re-evaluation: The patient presents to the ED with acute epigastric pain. The patient was quite tenderness epigastrium and right upper quadrant upon arrival. The patient was taken for a stat CT scan of the abdomen pelvis to exclude abdominal aortic aneurysm. The patient's CT scan for fortunately demonstrates no evidence of an abdominal aortic aneurysm. The patient does have a gallstone noted in the neck of his gallbladder. The patient's liver function test and laboratory studies are within normal limits. Patient had an IV established. He received 50 mcg of fentanyl. The patient underwent 3 examinations by myself in the ED over a 3 hour period. Patient was re-evaluated at 4:00 p.m.. He is completely asymptomatic at this point time. He has been informed that it is possible he is experiencing cholelithiasis. The patient will be discharged home with customary aftercare instructions. The patient will follow up with his primary care provider for consideration of surgical referral. He does understand return to the ED immediately for severe pain, fever, vomiting or other concerns. Differential Diagnosis: Differential diagnosis considered includes abdominal aortic aneurysm, pancreatitis, cholecystitis, cholelithiasis - Data Points Laboratory Results: Laboratory Results 08/08/16 12:44 08/08/16 12:44 08/08/16 08/08/16 12:44 12:44 WBC 9.88 10^3/uL H 10^3/uL (3.80-9.50) RBC 6.04 10^6/uL 10^6/uL (4.40-6.38) Hgb 18.2 g/dL H g/dL (13.7-17.5) Hct 51.7 % H % (40.0-51.0) MCV 85.6 fL fL (81.5-99.8) MCH 30.1 pg pg (27.9-34.1) MCHC 35.2 g/dL g/dL (32.4-36.7) RDW 13.2 % % (11.5-15.2) Plt Count 321 10^3/uL 10^3/uL (150-400) MPV 9.0 fL fL (8.7-11.7) Neut % (Auto) 84.5 % H % (39.3-74.2) Lymph % (Auto) 10.8 % L % (15.0-45.0) [place] % (Auto) 3.3 % L % (4.5-13.0) Eos % (Auto) 0.2 % L % (0.6-7.6) Baso % (Auto) 0.5 % % (0.3-1.7) Nucleat RBC Rel Count 0.0 % % (0.0-0.2) Absolute Neuts (auto) 8.34 10^3/uL H 10^3/uL (1.70-6.50) Absolute Lymphs (auto) 1.07 10^3/uL 10^3/uL (1.00-3.00) Absolute Monos (auto) 0.33 10^3/uL 10^3/uL (0.30-0.80) Absolute Eos (auto) 0.02 10^3/uL L 10^3/uL (0.03-0.40) Absolute Basos (auto) 0.05 10^3/uL 10^3/uL (0.02-0.10) Absolute Nucleated RBC 0.00 10^3/uL 10^3/uL (0-0.01) Immature Gran % 0.7 % % (0.0-1.1) Immature Gran # 0.07 10^3/uL 10^3/uL (0.00-0.10) Sodium 139 mEq/L mEq/L (134-144) Potassium 4.0 mEq/L mEq/L (3.5-5.2) Chloride 103 mEq/L mEq/L (97-110) Carbon Dioxide 20 mEq/l L mEq/l (22-31) Anion Gap 16 mEq/L mEq/L (8-16) BUN 18 mg/dL mg/dL (7-23) Creatinine 0.9 mg/dL mg/dL (0.7-1.3) Estimated GFR > 60 Glucose 166 mg/dL H mg/dL (70-100) Calcium 10.1 mg/dL mg/dL (8.5-10.4) Total Bilirubin 1.0 mg/dL mg/dL (0.1-1.4) Conjugated Bilirubin 0.5 mg/dL mg/dL (0.0-0.5) Unconjugated Bilirubin 0.5 mg/dL mg/dL (0.0-1.1) AST 25 IU/L IU/L (17-59) ALT 36 IU/L IU/L (21-72) Alkaline Phosphatase 118 IU/L IU/L (38-126) Troponin I < 0.012 ng/mL ng/mL (0-0.034) Total Protein 8.4 g/dL H g/dL (6.3-8.2) Albumin 4.8 g/dL g/dL (3.5-5.0) Lipase 165.0 IU/L IU/L (23-300) Medications Given: Discontinued Medications Fentanyl (Sublimaze) 50 mcg IVP EDNOW ONE Stop: 08/08/16 13:14 Last Admin: 08/08/16 13:31 Dose: 50 mcg Ondansetron HCl (Zofran) 4 mg IVP EDNOW ONE Stop: 08/08/16 12:47 Last Admin: 08/08/16 12:54 Dose: 4 mg Departure - Departure Disposition: Home, Routine, Self-Care Clinical Impression: Cholelithiasis Condition: Good Instructions: Gallstones (ED), Biliary Colic (ED) Additional Instructions: 1. Please return to the emergency department for severe pain, nausea, vomiting or other concerns. 2. Please follow up with your regular physician. You do have gallstones which may be responsible for your intermittent abdominal pain. There may be an indication to talk with a general surgeon Rajendra having her gallbladder removed. Please have discussion with your doctor. Referrals: HEIDI BLANCO [Primary Care Provider] - As per Instructions
[2016-08-08] MEDS ORDERED: fentaNYL 100 MCG/2 ML INJ IVP ONE (13:13)
[2016-08-08 13:20] LABS: % IMMATURE GRANULYOCYTES 0.7 % (0.0-1.1); ABSOLUTE IMMATURE GRANULOCYTES 0.07 10^3/uL (0.00-0.10); ADD DIFF? NO; ADD MORPH? NO; ADD SCAN? NO; ATYPICAL LYMPHOCYTE FLAG 0 (0-99); FRAGMENT RBC FLAG 0 (0-99); HEMATOCRIT 51.7 % (40.0-51.0); HEMOGLOBIN 18.2 g/dL (13.7-17.5); LEFT SHIFT FLG 0 (0-99); LIPEMIA HEMOLYSIS FLAG 90 (0-99); MEAN CELL HEMOGLOBIN 30.1 pg (27.9-34.1); MEAN CELL HEMOGLOBIN CONCENTR. 35.2 g/dL (32.4-36.7); MEAN CELL VOLUME 85.6 fL (81.5-99.8); PLATELET CLUMPS FLAG 0 (0-99); PLATELET COUNT 321 10^3/uL (150-400); RED BLOOD CELL COUNT 6.04 10^6/uL (4.40-6.38); RED CELL DISTRIBUTION WIDTH 13.2 % (11.5-15.2)
[2016-08-08 13:26] LABS: ALANINE AMINOTRANSFERASE 36 IU/L (21-72); ALBUMIN 4.8 g/dL (3.5-5.0); ALKALINE PHOSPHATASE 118 IU/L (38-126); ANION GAP 16 mEq/L (8-16); ASPARTATE AMINOTRANSFERASE 25 IU/L (17-59); BILIRUBIN-CONJUGATED 0.5 mg/dL (0.0-0.5); BILIRUBIN-UNCONJUGATED 0.5 mg/dL (0.0-1.1); CALCIUM 10.1 mg/dL (8.5-10.4); CARBON DIOXIDE 20 mEq/l (22-31); CHLORIDE 103 mEq/L (97-110); CREATININE 0.9 mg/dL (0.7-1.3); GLOMERULAR FILTRATION RATE > 60; GLUCOSE 166 mg/dL (70-100); SODIUM 139 mEq/L (134-144); TOTAL PROTEIN 8.4 g/dL (6.3-8.2)
[2016-08-08 13:38] LABS: TROPONIN I < 0.012 ng/mL (0-0.034)
[2016-08-08] MEDS ORDERED: IOPAMIDOL (ISOVUE 370) 100 ML BTL IV ONE (13:40)
[2016-08-08 16:02] VITALS: BP 116/78; PULSE 64; RESP 15; TEMP 99.3; O2SAT 97
== END 2016-08-08 16:01 | disposition home or self-care (01) ==
DX: K80.20 Calculus of gallbladder without cholecystitis without obstruction (principal); Z95.0 Presence of cardiac pacemaker; Z95.5 Presence of coronary angioplasty implant and graft
CPT/HCPCS: 74174; 93005; 96374; 96375; 99285; J2405; J3010; Q9967

== ENCOUNTER 2016-10-26 18:20 | Emergency (ER) | payer OTHER ==
[2016-10-26 18:29] VITALS: TEMP 98.2
--- NOTE | 2016-10-26 18:33 | EDPHY ---
H & P Stated Complaint: Inhaled fumes from lysol and bleach~2 hrs ago HPI/ROS: CHIEF COMPLAINT:Inhaled fumes from cleaning products HISTORY OF PRESENT ILLNESS: This patient is a 76 year old male presenting following inhalation of possibly dangerous chemicals around two hours ago. He was cleaning a toilet with Lysol, and added some bleach, which created bubbles and gas. He took a couple of breaths before he was able to leave and began coughing. He had trouble breathing , and went to his local firehouse and was put on oxygen. 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 He feels his symptoms are mostly resolved at this point , and states he can breathe considerably better than earlier. No chest pain, headache, or other associated symptoms. He is no longer coughing. He does not feel that his breathing is restricted. REVIEW OF SYSTEMS: A ten point review of systems was performed and is negative with the exception of the items mentioned in the HPI. - Personal History Current Tetanus Diphtheria and Acellular Pertussis (TDAP): Yes Tetanus Vaccine Date: <10 YRS - Medical/Surgical History PMH: 1. Colon problems 2. Stents x6 3. Pacemaker 4. Hyperlipidemia (Statin) 5. Chronic pain (Oxycodone) Hx Asthma: No Hx Chronic Respiratory Disease: No Hx Diabetes: No Hx Cardiac Disease: Yes Hx Renal Disease: No Hx Cirrhosis: No Hx Alcoholism: No Hx HIV/AIDS: No Hx Splenectomy or Spleen Trauma: No Other PMH: pacemaker, 6 stents - Social History Smoking Status: Former smoker Additional Social History: Nonsmoker. Occasional marijuana use. Former ticker maintainer. Lives in [place]. PCP : Dr. Hein - Physical Exam Exam: General Appearance: Alert. Vital signs reviewed. BP 145/82. Pulse ox 95% RA. Eyes: Pupils equal and round, no conjunctival injection, no discharge. Anicteric. ENT, Mouth: Mucous membranes are moist, no oropharyngeal erythema or edema. Neck: No lymphadenopathy, supple. Respiratory: Lungs are clear to auscultation; no wheezes, rales, or rhonchi. Cardiovascular: Regular rate and rhythm; no murmur, rub, or gallop. Gastrointestinal: Abdomen is soft and nontender, no masses or organomegaly, bowel sounds normal. Skin: Warm and dry, no rashes on exposed skin, normal color. Back: Nontender to palpation over the thoracolumbar spine. No CVAT. Extremities: No lower extremity edema, no calf tenderness or swelling. Neurological: Alert and oriented. Moving all four extremities easily and equally. Psychiatric: Normal affect. Constitutional: Initial Vital Signs Temperature (C) 36.8 C 10/26/16 18:20 Heart Rate 64 10/26/16 18:20 Respiratory Rate 18 10/26/16 18:20 Blood Pressure 145/82 H 10/26/16 18:20 O2 Sat (%) 95 10/26/16 18:20 O2 Delivery Mode Room Air Allergies/Adverse Reactions: No Known Allergies Allergy (Verified 10/26/16 18:25) Home Medications: Medication Instructions Recorded "Stomach Pill" 10/26/16 Atorvastatin Calcium [Lipitor 40 40 mg PO 10/26/16 mg (*)] oxyCODONE/APAP 5/325 [Percocet 1 tab PO 10/26/16 5/325 (*)] Medical Decision Making - Diagnostics Imaging: I viewed and interpreted images myself ED Course/Re-evaluation: 76 year old male exposed to combination of Lysol and bleach. Attempted to call poison control. Unable to reach them with three attempts. Chest x-ray unremarkable for acute processes. Underlying emphysema. I have reviewed radiology report. Patient completed DuoNeb treatment and is feeling much better. Plan to discharge home in good condition. I have tried contact Poison Control 3 times, and has been on hold for prolonged time periods with each call. Patient does not wish to wait any longer in the emergency department. He is feeling significantly better. At this point in time I am not discharging him home with inhalers or steroids. His chest x-ray is normal with the exception of some chronic changes on the left and emphysema. He is oxygenating well. His lungs are clear at discharge. He is not coughing. He does not have chest pain. This might be reactive airway dysfunction syndrome or H[place]. It is unlikely that there will be ongoing problems or damage. Lysol can be bought with bleach in it, his exposure was very brief, he now feels well. He is oxygenating normally. I will continue to try to reach poison control, and will call him if there are further steps he needs to take regarding his exposure. - Data Points Medications Given: Discontinued Medications Albuterol/Ipratropium (Duoneb) 3 ml IH EDNOW ONE Stop: 10/26/16 18:49 Last Admin: 10/26/16 19:02 Dose: 3 ml Departure - Departure Disposition: Home, Routine, Self-Care Clinical Impression: Exposure to chemical inhalation Condition: Good Instructions: Pneumonitis (ED) Additional Instructions: As you know, I have been unable to reach poison Control. I will continue trying and I will call you if they have any recommendations that you need to act on. If you developed trouble breathing, persistent cough, any new or concerning symptoms you should be re-evaluated. Please do not mix cleaning products. We are giving you some written instructions but they do not quite fit your circumstances, however, they are the best our computerized system can do. Referrals: DR MAXIME [Other] - As per Instructions HEIDI BLANCO [Non Staff Provider (MD)] - As per Instructions Report Scribed for: Elle Gant Report Scribed by: Abigail Gomez Date of Report: 10/26/16 Time of Report: 18:54 Physician Review and Approval Statement: 10/26/16 18:33 Portions of this note were transcribed by the medical nurse. I, Dr. Elle Gant, personally performed the history, physical exam, and medical decision- making; and confirmed the accuracy of the information in the transcribed note.
[2016-10-26] MEDS ORDERED: IPRATROPIUM/ALBUTEROL 3 ML DEYVIAL IH ONE (18:48)
[2016-10-26 19:40] VITALS: BP 107/81; PULSE 72; RESP 16; O2SAT 94
== END 2016-10-26 19:39 | disposition home or self-care (01) ==
DX: Z77.098 Contact with and (suspected) exposure to other hazardous, chiefly nonmedicinal, chemicals (principal); Z87.891 Personal history of nicotine dependence; Z95.0 Presence of cardiac pacemaker